=== PATIENT | female | born 1980 | race African-American/Black ===

== ENCOUNTER 2021-12-09 13:18 | Emergency (ER) | payer OTHER ==
[~2021-12-09] VITALS: Ht 160 cm; Wt 95.0 kg
[2021-12-09 13:20] VITALS: BP 137/95
[2021-12-09 17:10] LABS: BASOPHILS % 0.8 % (0.0-2.0); EOSINOPHILS % 2.2 % (0.0-5.0); HEMATOCRIT. 46.9 % (36.0-48.0); LYMPHOCYTES % 19.2 % (20.0-50.0); MEAN CORPUSCULAR VOLUME 96.7 fL (81.0-99.0); MEAN PLATELET VOLUME 8.7 fl (7.4-10.4); MONOCYTES % 7.7 % (2.0-8.0); NEUTROPHILS % 70.1 % (40.0-76.0); PLATELET 345 x1000/uL (130-400); RED BLOOD CELL COUNT 4.85 mill/uL (4.2-5.4); RED CELL DISTRIBUTION WIDTH 13.2 % (11.6-14.6)
[2021-12-09 17:18] LABS: CHLORIDE 97 mEq/L (98-107)
[2021-12-09 18:23] LABS: PROTHROMBIN TIME 10.4 sec (9.6-11.0)
== END 2021-12-09 18:46 | disposition home or self-care (01) ==
LOC: ER 13:18
DX: R25.2 Cramp and spasm (principal); M79.642 Pain in left hand; Z86.718 Personal history of other venous thrombosis and embolism
CPT/HCPCS: 36415; 80053; 81025; 85025; 93971; 99284